=== PATIENT | female | born 1955 | race Caucasian/White ===

== ENCOUNTER → 2018-01-25 | Outpatient (CLI) | payer OTHER ==
--- NOTE | 2018-01-28 11:33 | PCVCIMAG ---
APPROVED REPORT Study performed: 01/25/2018 15:01:56 Exam: Stress Echocardiogram Indication: elevated coronary Ca+ score Patient Location: Echo lab Stress Nurse: Danika Barragan RN Room #: 2 Status: routine Ht: 5 ft 5 in HR: 72 bpm BP: 116/70 mmHg Rhythm: NSR Medical History Medical History: HCL, COR CA+ 157 Cardiac Risk Factors: Hyperlipidemia Previous Cardiac Procedures: NONE Pretest Chest Pain Characteristics: No chest pain Exercise History: Physically active Procedure The patient underwent an Exercise Stress Test using the [facility] Protocol. Blood pressure, heart rate, and EKG were monitored. An Echocardiogram was performed by blood bank technician in four stages in quad fashion. At peak stress, four selected images were obtained and placed side by side with resting images for comparison. Stress Test Details Stress Test: Exercise stress testing was performed using a Hudson protocol. HR Resting HR: 72 bpmMax Heart Rate (APMHR): 159 bpm Max HR Achieved: 164 bpmTarget HR (85% APMHR): 135 bpm % of APMHR: 103 Recovery HR: 89 bpm HR response to stress: Normal HR response to stress BP Resting BP: 116/70 mmHg Max BP: 164/64 mmHg Recovery BP: 126/74 mmHg BP response to stress: Normal blood pressure response to stress. ECG Resting ECG: Sinus Rhythm Stress ECG: Sinus Rhythm ST Change: Upsloping ST depression Arrhythmia: None Recovery ECG: Sinus Rhythm, NSSTT changes Recovery ST Change: Non-ischemic Recovery Arrhythmia: None Clinical Reason for Termination: Maximal effort Stress Symptoms: FATIGUE Exercise duration: 12 min 00 sec Highest Stage Achieved: Stage 4: 4.2 mph at 16% grade. Exercise capacity: 13.4 METs Overall Exercise Capacity for Age: Good Scale: Active Angina Score: None No complications. Stress ECG Conclusion The patient exercised according to the HUDSON protocol for 12:00 mins; achieving a work level of 13.4 METS. The resting heart rate of 72 bpm kelly to a maximum heart rate of 164 bpm. This value represent 103% of the maximal, age-predicted heart rate. The resting blood pressure of 116/70 mmHg, kelly to a maximum blood pressure of 164/64 mmHg. The exercise test was stopped due to FATIGUE . Pre-Stress Echo The resting Echocardiogram showed normal left ventricular contractility with an estimated Ejection Fraction of about 55-60%. Normal wall motion in all segments on baseline images. Post-Stress Echo The stress Echocardiogram showed normal left ventricular contractility with an estimated Ejection Fraction of about 65-70%. Normal augmentation of wall motion in all segments on post stress images. Clinical No clinical or ECG evidence for ischemia. Conclusion Clinical Response: Non-ischemic Exercise Capacity: Average Stress ECG Response: Non-ischemic Stress Echo Images: Non-ischemic No echocardiographic evidence for exercise induced ischemia. No clinical, EKG or echocardiographic evidence for ischemia. Normal stress echocardiogram with maximal exercise stress. 1. Low Risk Study No prior study available for comparison. <Conclusion> No echocardiographic evidence for exercise induced ischemia. No clinical, EKG or echocardiographic evidence for ischemia. Normal stress echocardiogram with maximal exercise stress. 1. Low Risk Study
== END | disposition home or self-care (01) ==
LOC: PCVCIMAG 15:13
PROVIDERS: ATTEND Internal Medicine
DX: R93.1 Abnormal findings on diagnostic imaging of heart and coronary circulation (principal); E78.5 Hyperlipidemia, unspecified
CPT/HCPCS: 93325; 93351